=== PATIENT | female | born 1985 | race Hispanic/Latino ===

== ENCOUNTER 2022-04-28 10:48 | Emergency (ER) | payer SELFPAY ==
[~2022-04-28] VITALS: Ht 154.9 cm; Wt 74.4 kg
== END 2022-04-28 11:28 | disposition home or self-care (01) ==
LOC: ER 11:00
DX: S40.022A Contusion of left upper arm, initial encounter (principal); S51.851A Open bite of right forearm, initial encounter; Y04.1XXA Assault by human bite, initial encounter; Y99.0 Civilian activity done for income or pay; D64.9 Anemia, unspecified
CPT/HCPCS: 99282